=== PATIENT | female | born 1945 | race Two or more races ===

== ENCOUNTER 2023-02-28 16:23 | Emergency (ER) | payer MEDICARE, OTHER ==
[~2023-02-28] VITALS: Ht 154.9 cm; Wt 50.8 kg
--- NOTE | 2023-02-28 16:50 | NUR ---
XRAY AT BEDSIDE
--- NOTE | 2023-02-28 17:00 | NUR ---
BLOOD SAMPLES OBTAINED
[2023-02-28] MEDS ORDERED: IV NS 0.9% 250 ML IV ONE (17:09)
[2023-02-28] MEDS ORDERED: IOHEXOL-350 100 ML VIAL IV ONE (17:09)
[2023-02-28] MEDS ORDERED: CT SWABBABLE VALVE TRANS SET 1 EA INFUS.SET MC ONE (17:09)
--- NOTE | 2023-02-28 17:17 | NUR ---
PT TAKEN TO CT VIA [facility]
[2023-02-28 17:42] LABS: CALCIUM, SERUM 9.2 mg/dL (8.5-10.1); CARBON DIOXIDE 25 mmol/L (21-32); CHLORIDE 101 mmol/L (98-107); CREATININE 0.6 mg/dL (0.6-1.3); GLUCOSE 175 mg/dL (74-106); POTASSIUM 3.6 mmol/L (3.5-5.1); SODIUM SERUM 135 mmol/L (136-145); UREA NITROGEN, BLOOD 9 mg/dL (7-18)
[2023-02-28 17:52] LABS: BASOPHILS # (AUTO) 0.1 K/uL (0.0-0.2); BASOPHILS % (AUTO) 0.7 % (0.0-2.0); EOSINOPHILS % (AUTO) 3.5 % (0.0-6.0); HEMATOCRIT 42 % (33-45); HEMOGLOBIN 14.1 g/dL (11.5-14.8); LYMPHOCYTES # (AUTO) 2.7 K/uL (0.8-4.8); LYMPHOCYTES % (AUTO) 33.6 % (20.0-44.0); MEAN CORPUSCULAR HGB CONC 33 g/dl (31.0-36.0); MEAN CORPUSCULAR VOLUME 96 fL (82-100); MONOCYTES # (AUTO) 0.7 K/uL (0.1-1.30); MONOCYTES % (AUTO) 8.5 % (2.0-12.0); NEUTROPHILS # (AUTO) 4.3 K/uL (1.8-8.9); NEUTROPHILS % (AUTO) 53.7 % (43.0-81.0); PLATELET COUNT (AUTO) 269 K/uL (150-450)
--- NOTE | 2023-02-28 17:53 | NUR ---
COVID AND MRSA SWAB COLLECTED AND SENT TO LAB
[2023-02-28] MEDS ORDERED: ASPI-1169 PO (18:43)
--- NOTE | 2023-02-28 18:51 | NUR ---
DR. FERRIS AT BEDSIDE
--- NOTE | 2023-02-28 18:59 | NUR ---
CALLED [facility] AND SET UP S TRANSPORT ETA 1944
--- NOTE | 2023-02-28 19:15 | NUR ---
Pt is noted in bed alert, responsive as report is received from the off goping nurse that , Pt was sent in by hr MD for dizziness x1HR Ago to Triage. Pt care continue .
--- NOTE | 2023-02-28 19:40 | NUR ---
Pt is noted off the unit as she is been discharge to home with all discharge instructions given with no S/S off distress or Dizziness.
[2023-02-28 20:02] VITALS: BP 132/82
== END 2023-02-28 19:40 | disposition home or self-care (01) ==
LOC: ER 17:01
DX: G45.9 Transient cerebral ischemic attack, unspecified (principal); K21.9 Gastro-esophageal reflux disease without esophagitis; E21.3 Hyperparathyroidism, unspecified; Z79.899 Other long term (current) drug therapy; Z91.040 Latex allergy status; Z60.2 Problems related to living alone; Z20.822 Contact with and (suspected) exposure to COVID-19; Z88.1 Allergy status to other antibiotic agents
CPT/HCPCS: 99285; 70450; 71045; 87426; 93005; 70498; 70496; 85025; 80048; 36415; 84484; 85730; 82962; J7050; Q9967; C9803